=== PATIENT | male | born 1985 | race Caucasian/White ===

== ENCOUNTER 2017-02-21 22:17 | Emergency (ER) | payer BC ==
[~2017-02-21] VITALS: Ht 193 cm; Wt 133.8 kg
--- NOTE | 2017-02-21 23:12 | PHYS DOC ---
Adult General Chief Complaint Chief Complaint: SKIN PROBLEM HPI HPI Patient is a 31 year old male presents to the emergency department with pain in the right medial, distal, thigh. Patient states that he had gradual onset of discomfort and redness to the skin this morning and is gone progressively worsen this area. States he has pain with complete extension of the leg. Patient states he took Naprosyn without relief pain. 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 Patient states that he is not risk for blood clot. He has not been immobilized for any period of time, no recent surgeries, he does not smoke, he does not have sent her life, no clotting disorder. Review of Systems Review of Systems Constitutional: Denies fever or chills [] Eyes: Denies change in visual acuity, redness, or eye pain [] HENT: Denies nasal congestion or sore throat [] Respiratory: Denies cough or shortness of breath [] Cardiovascular: No additional information not addressed in HPI [] GI: Denies abdominal pain, nausea, vomiting, bloody stools or diarrhea [] : Denies dysuria or hematuria [] Musculoskeletal: Shi right medial thigh[] Integument: Redness Neurologic: Denies headache, focal weakness or sensory changes [] Endocrine: Denies polyuria or polydipsia [] Physical Exam Physical Exam Constitutional: Well developed, well nourished, no acute distress, non-toxic appearance. [] HENT: Normocephalic, atraumatic, bilateral external ears normal, oropharynx moist, no oral exudates, nose normal. [] Eyes: PERRLA, EOMI, conjunctiva normal, no discharge. [] Neck: Normal range of motion, no tenderness, supple, no stridor. [] Cardiovascular:Heart rate regular rhythm, no murmur [] Lungs & Thorax: Bilateral breath sounds clear to auscultation [] Skin: Right medial thigh with an 8 x 10 cm area of erythema without induration. It is mildly warm to touch, there is tenderness in the proximal portion of the erythema. Back: No tenderness, no CVA tenderness. [] Extremities: no cyanosis, no clubbing, ROM intact, no edema, calf is supple, no swelling, negative Homans [] Neurologic: Alert and oriented X 3, normal motor function, normal sensory function, no focal deficits noted. [] Psychologic: Affect normal, judgement normal, mood normal. [] Current Patient Data Vital Signs Vital Signs Date Time Temp Pulse Resp B/P (MAP) Pulse Ox O2 Delivery O2 Flow Rate FiO2 02/21/17 23:55 98.0 76 20 100 Room Air 98.0 EKG EKG [] Radiology/Procedures Radiology/Procedures [][facility] [address] [place] [address] IMAGING REPORT Signed PATIENT: GLORIA GARCIA ACCOUNT: [id number] : 1985 LOCATION: ER AGE: 31 SEX: M EXAM STATUS: REG ER ORD. PHYSICIAN: OSEAS HUTCHINS APRN REASON: pain, redness, medial distal thigh PROCEDURE: VENOUS LOWER EXTREMITY RIGHT INDICATION: Right leg pain and redness COMPARISON: None. TECHNIQUE: Grayscale, color and doppler ultrasound images were obtained of the right lower extremity venous vasculature. RIGHT: No thrombus identified in the common femoral vein, femoral vein, popliteal vein or visualized calf veins. Soft tissue edema. IMPRESSION: 1. No thrombus identified in deep venous system of right lower extremity. Electronically signed by: Jose Francisco Garcia MD (02/22/2017 12:24 AM) [facility] DICTATED and SIGNED BY: JOSE FRANCISCO GARCIA MD DATE: 02/22/17 0023 CC: NO PCP; SOEAS HUTCHINS APRN ~ Course & Med Decision Making Course & Med Decision Making Pertinent Labs and Imaging studies reviewed. (See chart for details) []I did inform the patient the results, diagnosis and plan to discharge home. Plan to provide prescriptions for Bactrim and tramadol. The patient understands and agrees with this plan. All questions have been addressed at this time. Return to ER warnings given. I spoke with the patient and/or care givers. I've explained the patient's condition, diagnosis and treatment plan based on the information available to me at this time. I've answered the patient's and/or care givers questions and a dressing concerns. The patient and/or care givers have as good an understanding of the patient's diagnosis, condition and treatment plan as can be expected at this time. Vital signs stable. The patient's condition is stable and appropriate for discharge from the emergency department. The patient will pursue further outpatient evaluation with the primary care physician or other designated or consulting physician as outlined in the discharge instructions. The patient and/or care givers are agreeable to this plan of care and follow-up instructions and explained in detail. The patient and /or care givers have received these instructions in written format and have expressed an understanding of the discharge instructions. The patient and/or caregivers are aware that any significant change in condition or worsening of symptoms should prompt immediate return to this closest emergency department or call to 911. Dragon Disclaimer Dragon Disclaimer This electronic medical record was generated, in whole or in part, using a voice recognition dictation system. Departure Departure Impression: Primary Impression: Cellulitis Disposition: HOME, SELF-CARE Condition: STABLE [facility] Patient Instructions: Cellulitis Additional Instructions: Medications as prescribed. Follow-up with your primary care provider or the physician listed in the referral of your discharge report. Return to the emergency Department for new symptoms or concerns or worsening of current conditions. Scripts Tramadol Hcl (TRAMADOL HCL) 50 Mg Tablet 50 MG PO Q6H Y for PAIN, #15 TAB Prov: OSEAS HUTCHINS APRN 02/22/17 Sulfamethoxazole/Trimethoprim (BACTRIM DS TABLET) 1 Each Tablet 1 TAB PO BID, #20 TAB Prov: OSEAS HUTCHINS APRN 02/22/17 Problem Qualifiers Primary Impression: Cellulitis Site of cellulitis: extremity Site of cellulitis of extremity: lower extremity Laterality: right Qualified Codes: L03.115 - Cellulitis of right lower limb OSEAS HUTCHINS APRN Feb 21, 2017 23:12
[2017-02-21 23:55] VITALS: BP 133/83
--- NOTE | 2017-02-22 00:28 | RAD ---
INDICATION: Right leg pain and redness COMPARISON: None. TECHNIQUE: Grayscale, color and doppler ultrasound images were obtained of the right lower extremity venous vasculature. RIGHT: No thrombus identified in the common femoral vein, femoral vein, popliteal vein or visualized calf veins. Soft tissue edema. IMPRESSION: 1. No thrombus identified in deep venous system of right lower extremity. Electronically signed by: Jose Francisco Cagle MD (02/22/2017 12:24 AM) [facility]
[2017-02-22] MEDS ORDERED: SULF1TAB24 PO (00:36)
[2017-02-22] MEDS ORDERED: TRAM50TA PO (00:36)
== END 2017-02-22 01:06 | disposition home or self-care (01) ==
LOC: ER 22:17
DX: L03.115 Cellulitis of right lower limb (principal)
CPT/HCPCS: 93971; 99284-25

== ENCOUNTER → 2020-12-13 | Outpatient (CLI) | payer BC ==
[~2020-12-13] MED LIST: SULF1TAB24 PO; TRAM50TA PO
--- NOTE | 2020-12-13 16:22 | KCIC ---
EXAM: Left hand, 3 views. HISTORY: Pain. COMPARISON: None. FINDINGS: 3 views of the left hand are obtained. There is no fracture, dislocation or subluxation. Th ere is no radiodense foreign body. IMPRESSION: No acute osseous finding. Electronically signed by: Lillian De La Fuente MD (12/13/2020 4:19 PM) [id number]
== END ==
LOC: KCIC 15:41
PROVIDERS: ATTEND Nurse Practitioner Family
DX: M79.642 Pain in left hand (principal)
CPT/HCPCS: 73130